=== PATIENT | female | born 1980 | race Caucasian/White ===

== ENCOUNTER 2016-10-16 08:56 | Emergency (ER) | payer BC ==
[2016-10-16 09:14] VITALS: BP 149/82
--- NOTE | 2016-10-16 09:40 | EDM.PDOC ---
ED HPI GENERAL MEDICAL PROBLEM - General Chief Complaint: ENT Problem Stated Complaint: PINK EYE Time Seen by Provider: 10/16/16 09:29 Source of Information: Reports: Patient History Limitations: Reports: No Limitations - History of Present Illness INITIAL COMMENTS - FREE TEXT/NARRATIVE: History of present illness: [36-year-old female presenting with pink eye involving the right eye. She just noted it this morning. It was mattered shut. She has had a little bit of a cold lately. No fever. No pain and her vision is not impaired] Review of systems: As per history of present illness and below otherwise all systems reviewed and negative. Past medical history: As per history of present illness and as reviewed below otherwise noncontributory. Surgical history: As per history of present illness and as reviewed below otherwise noncontributory. Social history: No reported history of drug or alcohol abuse. Family history: As per history of present illness and as reviewed below otherwise noncontributory. Physical exam: HEENT: Atraumatic, normocephalic, pupils reactive, negative for conjunctival show injection of the right conjunctiva with mattering present on her eyebrows pupils are equal round reactive to light extraocular movements are intact, mucous membranes moist, throat clear, neck supple, nontender, trachea midline. Lungs: Clear to auscultation, breath sounds equal bilaterally, chest nontender. Heart: S1S2, regular Extremities: Atraumatic, negative for cords or calf pain. Neurovascular unremarkable. Neuro: Awake, alert, . Exam nonfocal. Diagnostics: [] Therapeutics: [] Impression: [conjunctivitis right eye] Plan: [Ciloxan eye drops were provided for her wanted to drops every 4 hours while awake for 7 days] Definitive disposition and diagnosis as appropriate pending reevaluation and review of above. 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: , Other (See Below) Other OB/BYN History: Musculoskeletal History: Reports: None Psychiatric History: Reports: Anxiety, Depression Endocrine/Metabolic History: Reports: Obesity/BMI 30+ - Past Surgical History Head Surgeries/Procedures: Reports: None Endocrine Surgical History: Reports: None Musculoskeletal Surgical History: Reports: Other (See Below) Other Musculoskeletal Surgeries/Procedures:: ligament replacement left knee Social & Family History - Family History Family Medical History: Noncontributory - Tobacco Use Smoking Status *Q: Never Smoker Second Hand Smoke Exposure: No - Caffeine Use Caffeine Use: Reports: Coffee, Soda, Tea - Alcohol Use Days Per Week of Alcohol Use: 1 Number of Drinks Per Day: 1 Total Drinks Per Week: 1 - Recreational Drug Use Recreational Drug Use: No ED ROS ENT - Review of Systems Review Of Systems: ROS reveals no pertinent complaints other than HPI. ED EXAM, ENT - Physical Exam Exam: See Below Course - Vital Signs Last Recorded V/S: Last Vital Signs Temp 35.8 C 10/16/16 09:14 Pulse 69 10/16/16 09:14 Resp 14 10/16/16 09:14 BP 149/82 H 10/16/16 09:14 Pulse Ox 96 10/16/16 09:14 Departure - Departure Time of Disposition: 09:39 Disposition: Home, Self-Care 01 Condition: good Clinical Impression: Conjunctivitis Qualifiers: Conjunctivitis type: acute Acute conjunctivitis type: bacterial Laterality: right Qualified Code(s): H10.31 - Unspecified acute conjunctivitis, right eye - Discharge Information Forms: ED Department Discharge Additional Instructions: if you develop pain or visual disturbance of your right eye than that he is an emergency and you should seek medical attention immediately
== END 2016-10-16 09:49 | disposition home or self-care (01) ==
LOC: JP.ED 08:56
DX: H10.31 Unspecified acute conjunctivitis, right eye (principal); F41.9 Anxiety disorder, unspecified; F32.9 Major depressive disorder, single episode, unspecified; E66.9 Obesity, unspecified; Z68.35 Body mass index [BMI] 35.0-35.9, adult; Z98.890 Other specified postprocedural states
CPT/HCPCS: 99283